=== PATIENT | female | born 2000 | race Caucasian/White ===

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

== ENCOUNTER → 2020-03-01 | Outpatient (CLI) | payer SELFPAY | LOC: M LABSMTC 11:26 | PROVIDERS: ATTEND Pediatrics | DX: Z20.822 Contact with and (suspected) exposure to COVID-19 (principal) ==

== ENCOUNTER → 2020-11-19 | Outpatient (REF) | LOC: M LABSMTC 09:09 | PROVIDERS: ATTEND Family Medicine | DX: Z20.822 Contact with and (suspected) exposure to COVID-19 (principal) ==

== ENCOUNTER 2021-12-13 07:59 | Outpatient (RCR) | payer BC ==
[~2021-12-13 07:59] MED LIST changes: -IBUP200T45 PO; +IBUP200T46 PO
== END 2021-12-16 23:59 | disposition home or self-care (01) ==
LOC: M PT 07:59
PROVIDERS: ATTEND Physician Assistant
DX: S82.92XD Unspecified fracture of left lower leg, subsequent encounter for closed fracture with routine healing (principal)

== ENCOUNTER → 2021-12-17 | Outpatient (REF) ==
[2021-12-17 12:40] LABS: RSV AMPLIFICATION NEGATIVE (NEGATIVE)
== END ==
LOC: M EMP 11:47
PROVIDERS: ATTEND Family Medicine
DX: Z11.52 Encounter for screening for COVID-19 (principal)

== ENCOUNTER → 2021-12-26 | Outpatient (CLI) | payer BC ==
[2021-12-26 17:15] LABS: BASO % 0.3 % (0.0-1.0); EOS # 0.1 10^3/uL (0.0-0.5); EOS % 1.9 % (0.0-3.0); HEMATOCRIT 36.3 % (36.0-47.0); HEMOGLOBIN 12.9 g/dl (12.0-15.5); LYMPH # 2.6 10^3/uL (1.5-5.0); MEAN CORPUSCULAR HEMOGLOBIN 30.9 pg (27.0-33.0); MEAN CORPUSCULAR HGB CONC 35.5 g/dl (32.0-36.5); MEAN CORPUSCULAR VOLUME 86.8 fl (80.0-96.0); MONO # 0.4 10^3/uL (0.0-0.8); MONO % 5.9 % (2.0-8.0); NEUTROPHILS # 3.1 10^3/uL (1.5-8.5); NEUTROPHILS % 50.6 % (36.0-66.0); PLATELET COUNT, AUTOMATED 248 10^3/uL (150-450); RED BLOOD COUNT 4.18 10^6/uL (4.00-5.40); WHITE BLOOD COUNT 6.2 10^3/uL (4.0-10.0)
[2021-12-26 17:44] LABS: ERYTHROCYTE SEDIMENTATION RATE 7 mm/hr (0-20)
== END ==
LOC: M LAB 16:13
PROVIDERS: ATTEND Physician Assistant
DX: S83.92XD Sprain of unspecified site of left knee, subsequent encounter (principal)

== ENCOUNTER → 2022-01-15 | Outpatient (RCR) | payer BC | LOC: M PT 12-17 08:26 | PROVIDERS: ATTEND Physician Assistant | DX: M25.562 Pain in left knee (principal) ==

== ENCOUNTER 2022-02-05 08:30 | Outpatient (RCR) | payer BC | END 2022-02-15 | LOC: M PT 08:30 | PROVIDERS: ATTEND Physician Assistant | DX: M25.562 Pain in left knee (principal) ==

== ENCOUNTER 2022-02-19 08:34 | Outpatient (RCR) | payer BC | END 2022-03-18 | LOC: M PT 08:34 | PROVIDERS: ATTEND Physician Assistant | DX: M25.562 Pain in left knee (principal) ==

== ENCOUNTER → 2022-04-09 | Outpatient (REF) | payer BC ==
[2022-04-09 16:56] LABS: APPEARANCE, URINE CLEAR (CLEAR); BACTERIA, URINE AUTO NEGATIVE (NEGATIVE); BILIRUBIN, URINE AUTO NEGATIVE (NEGATIVE); BLOOD, URINE BLOOD NEGATIVE (NEGATIVE); COLOR, URINE COLORLESS (YELLOW); GLUCOSE, URINE (UA) AUTO NEGATIVE (NEGATIVE); KETONE, URINE AUTO NEGATIVE (NEGATIVE); LEUKOCYTE ESTERASE, URINE AUTO 1+ (NEGATIVE); NITRITE, URINE AUTO NEGATIVE (NEGATIVE); PROTEIN, URINE AUTO NEGATIVE (NEGATIVE); RBC, URINE AUTO 0 /HPF (0-3); SPECIFIC GRAVITY URINE AUTO 1.002 (1.002-1.035); SQUAMOUS EPITHELIAL CELL UR AU 0 /HPF (0-6); UROBILINOGEN, URINE AUTO 0.2 mg/dL (0.0-2.0); WBC, URINE AUTO 0 /HPF (0-3)
== END ==
LOC: M LAB REF 16:19
PROVIDERS: ATTEND Physician Assistant
DX: N39.0 Urinary tract infection, site not specified (principal)

== ENCOUNTER → 2022-08-27 | Outpatient (REF) | payer BC | LOC: M SFHCWAGY 17:02 | PROVIDERS: ATTEND Nurse Practitioner Family | DX: N94.10 Unspecified dyspareunia (principal); Z12.4 Encounter for screening for malignant neoplasm of cervix | CPT/HCPCS: 87491; 87591; 87661; 87798; G0123 ==

== ENCOUNTER → 2022-10-15 | Outpatient (REF) | payer BC | LOC: M SFHCWAGY 17:03 | PROVIDERS: ATTEND Nurse Practitioner Family | DX: R35.0 Frequency of micturition (principal) ==

== ENCOUNTER → 2023-06-19 | Outpatient (CLI) | payer BC ==
[2023-06-19 08:59] LABS: BASO % 0.3 % (0.0-1.0); EOS # 0.1 10^3/uL (0.0-0.5); EOS % 1.7 % (0.0-3.0); HEMOGLOBIN 12.8 g/dl (12.0-15.5); LYMPH # 1.5 10^3/uL (1.5-5.0); LYMPH % 25.6 % (24.0-44.0); MEAN CORPUSCULAR HEMOGLOBIN 31.3 pg (27.0-33.0); MEAN CORPUSCULAR VOLUME 85.6 fl (80.0-96.0); MONO # 0.3 10^3/uL (0.0-0.8); MONO % 5.1 % (2.0-8.0); NEUTROPHILS % 67.1 % (36.0-66.0); PLATELET COUNT, AUTOMATED 187 10^3/uL (150-450); RED BLOOD COUNT 4.09 10^6/uL (4.00-5.40); WHITE BLOOD COUNT 5.9 10^3/uL (4.0-10.0)
[2023-06-19 09:04] LABS: MEAN CORPUSCULAR HGB CONC 36.6 g/dl (32.0-36.5)
[2023-06-19 09:52] LABS: HIV 1&2 SCREEN NEGATIVE (NEGATIVE)
[2023-06-19 10:00] LABS: HEPATITIS C VIRUS ABY INDEX 0.03 INDEX (<0.8)
[2023-06-19 10:36] LABS: GC DNA AMPLIFICATION NEGATIVE (NEGATIVE)
== END ==
LOC: M LAB 07:59
PROVIDERS: ATTEND Obstetrics & Gynecology
DX: Z34.91 Encounter for supervision of normal pregnancy, unspecified, first trimester (principal)

== ENCOUNTER → 2023-06-29 | Outpatient (REF) | payer BC ==
[2023-06-29 14:59] LABS: APPEARANCE, URINE CLEAR (CLEAR); BACTERIA, URINE AUTO NEGATIVE (NEGATIVE); BILIRUBIN, URINE AUTO NEGATIVE (NEGATIVE); BLOOD, URINE BLOOD NEGATIVE (NEGATIVE); COLOR, URINE YELLOW (YELLOW); GLUCOSE, URINE (UA) AUTO NEGATIVE (NEGATIVE); KETONE, URINE AUTO NEGATIVE (NEGATIVE); LEUKOCYTE ESTERASE, URINE AUTO NEGATIVE (NEGATIVE); NITRITE, URINE AUTO NEGATIVE (NEGATIVE); PROTEIN, URINE AUTO NEGATIVE (NEGATIVE); RBC, URINE AUTO 1 /HPF (0-3); SPECIFIC GRAVITY URINE AUTO 1.011 (1.002-1.035); SQUAMOUS EPITHELIAL CELL UR AU 0 /HPF (0-6); UROBILINOGEN, URINE AUTO 0.2 mg/dL (0.0-2.0); WBC, URINE AUTO 0 /HPF (0-3)
== END ==
LOC: M SFHCWAGY 12:44
PROVIDERS: ATTEND Obstetrics & Gynecology
DX: N88.9 Noninflammatory disorder of cervix uteri, unspecified (principal); Z01.419 Encounter for gynecological examination (general) (routine) without abnormal findings; Z77.9 Other contact with and (suspected) exposures hazardous to health; Z12.4 Encounter for screening for malignant neoplasm of cervix

== ENCOUNTER → 2023-07-21 | Outpatient (CLI) | payer BC | LOC: M LAB 16:21 | PROVIDERS: ATTEND Obstetrics & Gynecology | DX: Z34.92 Encounter for supervision of normal pregnancy, unspecified, second trimester (principal) ==

== ENCOUNTER → 2023-08-17 | Outpatient (CLI) | payer BC | LOC: M WHC 07:38 | PROVIDERS: ATTEND Obstetrics & Gynecology | DX: Z34.92 Encounter for supervision of normal pregnancy, unspecified, second trimester (principal) ==

== ENCOUNTER → 2023-09-10 | Outpatient (CLI) | payer BC | LOC: M WHC 10:14 | PROVIDERS: ATTEND Obstetrics & Gynecology | DX: Z34.82 Encounter for supervision of other normal pregnancy, second trimester (principal); Z3A.22 22 weeks gestation of pregnancy ==

== ENCOUNTER → 2023-09-30 | Outpatient (CLI) | payer BC ==
[2023-09-30 13:20] LABS: HEMATOCRIT 33.1 % (36.0-47.0); HEMOGLOBIN 11.6 g/dl (12.0-15.5); MEAN CORPUSCULAR HEMOGLOBIN 31.6 pg (27.0-33.0); MEAN CORPUSCULAR VOLUME 90.2 fl (80.0-96.0); PLATELET COUNT, AUTOMATED 180 10^3/uL (150-450); RED BLOOD COUNT 3.67 10^6/uL (4.00-5.40); WHITE BLOOD COUNT 8.9 10^3/uL (4.0-10.0)
[2023-09-30 13:38] LABS: GLUCOSE CHALLENGE TEST 1 HOUR 81 MG/DL (LESS THAN 140)
[2023-09-30 14:06] LABS: HIV 1&2 SCREEN NEGATIVE (NEGATIVE)
[2023-09-30 14:13] LABS: HEPATITIS C VIRUS ABY INDEX 0.11 INDEX (<0.8)
[2023-09-30 14:56] LABS: GC DNA AMPLIFICATION NEGATIVE (NEGATIVE)
== END ==
LOC: M PLALAB 08:15
PROVIDERS: ATTEND Obstetrics & Gynecology
DX: Z34.80 Encounter for supervision of other normal pregnancy, unspecified trimester (principal)

== ENCOUNTER 2023-11-10 08:20 | Outpatient (CLI) | payer BC ==
[~2023-11-10] VITALS: Ht 162.6 cm; Wt 86.2 kg
[2023-11-10] MEDS ORDERED: FAMO1TAB11 PO (08:37)
[2023-11-10] MEDS ORDERED: PRENTAB9 PO (08:37)
[2023-11-10 08:40] VITALS: BP 119/76
[2023-11-10] MEDS ORDERED: HOME MED LIST COMPLETE! XX SCH (08:40)
[2023-11-10 12:03] VITALS: BP 125/68
== END 2023-11-10 12:15 | disposition home or self-care (01) ==
LOC: M LDO 08:20
PROVIDERS: ATTEND Obstetrics & Gynecology
DX: Z04.1 Encounter for examination and observation following transport accident (principal); O26.893 Other specified pregnancy related conditions, third trimester; V40.5XXA Car driver injured in collision with pedestrian or animal in traffic accident, initial encounter; Z67.91 Unspecified blood type, Rh negative; Z3A.31 31 weeks gestation of pregnancy; Y92.9 Unspecified place or not applicable; Y93.9 Activity, unspecified; Y99.9 Unspecified external cause status
CPT/HCPCS: 59025; G0463

== ENCOUNTER → 2023-12-17 | Outpatient (REF) | payer BC ==
[~2023-12-17] MED LIST changes: +FAMO1TAB11 PO; +PRENTAB9 PO
== END ==
LOC: M PLALAB 10:46
PROVIDERS: ATTEND Advanced Practice Midwife
DX: Z36.89 Encounter for other specified antenatal screening (principal); Z3A.36 36 weeks gestation of pregnancy

== ENCOUNTER 2024-01-16 10:47 | Inpatient (IN) | payer BC ==
[~2024-01-16] VITALS: Ht 162.6 cm; Wt 90.0 kg
[2024-01-16 11:03] VITALS: BP 126/79
[2024-01-16] MEDS ORDERED: HOME MED LIST COMPLETE! XX SCH (11:05)
[2024-01-16 11:31] LABS: HEMATOCRIT 31.1 % (36.0-47.0); MEAN CORPUSCULAR HEMOGLOBIN 25.3 pg (27.0-33.0); MEAN CORPUSCULAR HGB CONC 32.2 g/dl (32.0-36.5); MEAN CORPUSCULAR VOLUME 78.7 fl (80.0-96.0); PLATELET COUNT, AUTOMATED 214 10^3/uL (150-450); RED BLOOD COUNT 3.95 10^6/uL (4.00-5.40)
[2024-01-16] MEDS ORDERED: OXYTOCIN DRIP 30 UNITS in IV 1 EA IV PRN (12:10)
[2024-01-16] MEDS ORDERED: LIDOCAINE 1% MDV 20ML VIAL INFIL PRN (12:10)
[2024-01-16] MEDS: miSOPROStol 50MCG 1/2 TABLET PO ONE (12:18)
[2024-01-16 12:56] LABS: HEPATITIS C VIRUS ABY INDEX 0.24 INDEX (<0.8)
[2024-01-16 14:36] VITALS: BP 123/70
[2024-01-16] MEDS: miSOPROStol 50MCG 1/2 TABLET PO SCH (16:30)
[2024-01-16 16:31] VITALS: BP 123/70
[2024-01-16 20:09] VITALS: BP 110/58
[2024-01-16 21:41] VITALS: BP 113/71
[2024-01-16 22:45] VITALS: BP 109/60
[2024-01-17] VITALS (12 sets, daily range): BP systolic 110–147; BP diastolic 67–97; O2SAT 96–97
[2024-01-17] MEDS: PROMETHAZINE 25MG/ML 1ML VIAL IV ONE (05:32)
[2024-01-17] MEDS: BUTORPHANOL 2 MG/ML 1ML VIAL IV ONE (05:32)
[2024-01-17] MEDS ORDERED: FENTANYL 2MCG/ML ROPIVACAINE 0.2% IN 0.9% NACL 100ML IVBAG As Ordered ONE (07:30)
[2024-01-17] MEDS ORDERED: ePHEDrine SULFATE 25 MG/5 ML(5MG/ML) SYRINGE IVP PRN (07:40)
[2024-01-17] MEDS ORDERED: EPIDURAL/PCA KEYS XX PRN (07:40)
[2024-01-17] MEDS ORDERED: diphenhydrAMINE 50MG/ML VIAL IV PRN (07:40)
[2024-01-17] MEDS ORDERED: NALOXONE INJ 0.4MG/1ML VIAL IV PRN (07:40)
[2024-01-17] MEDS ORDERED: ONDANSETRON 4MG 2ML VIAL IV PRN ×2 (07:40→09:15)
[2024-01-17] MEDS ORDERED: LR 500 ML IV PRN (07:40)
[2024-01-17] MEDS: FENTANYL/ROPIVACAINE/NACL BAG 100 ML EPIDURAL SCH (08:00)
[2024-01-17] MEDS ORDERED: ANUSOL HC CREAM 30GM TOP PRN (09:15)
[2024-01-17] MEDS ORDERED: ACETAMINOPHEN 500 MG TAB PO PRN (09:15)
[2024-01-17] MEDS ORDERED: ACETAMINOPHEN 325 MG TAB PO PRN (09:15)
[2024-01-17] MEDS ORDERED: IBUPROFEN 800 MG TAB PO PRN (09:15)
[2024-01-17] MEDS: OXYTOCIN DRIP 30 UNITS in IV 1 EA IV SCH (09:33)
[2024-01-17] MEDS: DOCUSATE SODIUM 100MG CAPSULE PO PRN (20:10)
[2024-01-17] MEDS: DIBUCAINE 1% OINTMENT 30GM TOP PRN (20:11)
[2024-01-18 05:53] VITALS: BP 116/76; O2SAT 100
[2024-01-18] MEDS: PRENATAL VITAMINS CHEWABLE TABLET PO SCH (09:00)
[2024-01-18] MEDS: RHOGAM 300MCG (1500IU) INJ IM SCH (14:43)
[2024-01-18] MEDS: LORATADINE 10 MG TAB PO ONE (15:20)
[2024-01-18 18:00] VITALS: BP 111/69; O2SAT 96
[2024-01-18] MEDS: diphenhydrAMINE 50MG CAP PO PRN (23:52)
[2024-01-19] MEDS: IBUPROFEN 600MG TAB PO PRN (04:25)
[2024-01-19 06:00] VITALS: BP 122/65; O2SAT 98
[2024-01-19] MEDS ORDERED: MEASLES,MUMPS,RUBELLA VACCINE INJ (MMR-II) SC.IMMUN ONE (09:00)
[2024-01-19] MEDS ORDERED: ACET-683 PO (14:11)
[2024-01-19] MEDS ORDERED: COLA100C5 PO (14:11)
[2024-01-19] MEDS ORDERED: DIPH50CA PO (14:11)
[2024-01-19] MEDS ORDERED: HYDR1CR TOP (14:11)
[2024-01-19] MEDS: diphenhydrAMINE 25MG CAP PO ONE (16:10)
[2024-01-19] MEDS: HYDROCORTISONE 1% CREAM 30GM TOP PRN (16:10)
== END 2024-01-19 16:15 | disposition home or self-care (01) | DRG 560 ==
LOC: M LDI 10:47 → M OBS 01-17 11:01
PROVIDERS: ADMIT Obstetrics & Gynecology; ATTEND Obstetrics & Gynecology
PROC: 3E0P7GC Introduction of Other Therapeutic Substance into Female Reproductive, Via Natural or Artificial Opening (ICD-10-PCS; 2024-01-16)
PROC: 10E0XZZ Delivery of Products of Conception, External Approach (ICD-10-PCS; principal; 2024-01-17)
PROC: 0KQM0ZZ Repair Perineum Muscle, Open Approach (ICD-10-PCS; 2024-01-17)
DX: O48.0 Post-term pregnancy (principal); Z37.0 Single live birth; Z3A.41 41 weeks gestation of pregnancy; O70.1 Second degree perineal laceration during delivery

== ENCOUNTER → 2024-12-06 | Outpatient (CLI) | payer BC ==
[~2024-12-06] MED LIST changes: +ACET-683 PO; +COLA100C5 PO; +DIPH50CA31 PO; +HYDR1CR TOP
== END ==
LOC: M RAD 12:06
PROVIDERS: ATTEND Family Medicine
DX: R51.9 Headache, unspecified (principal)